=== PATIENT | female | born 1975 | race African-American/Black ===

== ENCOUNTER 2016-05-31 06:19 | Emergency (ER) | payer OTHER ==
[~2016-05-31] VITALS: Ht 165.1 cm; Wt 86.2 kg
[~2016-05-31 06:19] MED LIST: NORCO 5-325 TA1 EACH ORAL
[2016-05-31 06:41] VITALS: BP 108/65
[2016-05-31] MEDS ORDERED: VENTOLIN HFA18 GM INH (06:55)
[2016-05-31 07:01] VITALS: BP 108/65
--- NOTE | 2016-05-31 07:07 | Emergency Room Report ---
History of Present Illness General Chief Complaint: Skin Rash/Abscess Source: Patient Present Illness HPI 41 YO F presents with rash to torso, neck for 2 weeks. Mostly concentrated in this area, some rash also on back. Not on extremities, face, oral mucosa. No fever/chills, blistering, vesicles. Does NOT itch or bother patient - she is concerned with "how it looks." Has been taking benadryl at night but is disappointed benadryl hasnt made it "go away." Patient states she "eat shrimp for a whole week" in the days preceeding the rash and also started working out at a gym right before the onset of rash. She denies having SOB, trouble swallowing or chest pain or abd pain after eating the shrimp. She does not shower at gym or use its towels. She has no known allergies to food or medicine. Never had rash before but states she "has seasonal allergies." Denies new soap, detergent, pets, close contacts with similar rash. Did not start new medications prior to rash. On ROS also endorses cough for 1 week; non productive. No history of asthma, smoking, fever/chills. PMD gave Robitussin DM that hasnt helped. Allergies: Coded Allergies: No Known Allergies (Unverified , 01/21/16) Patient History Past Medical History: none Past Surgical History: none Pertinent Family History: none Social History: Denies: alcohol use, drug use, smoking Last Menstrual Period: May Now: No Immunizations: UTD Reviewed Nursing Documentation: PMH: Agreed, PSxH: Agreed Review of Systems All Other Systems: negative except mentioned in HPI Physical Exam Vital Signs Date Time Temp Pulse Resp B/P Pulse Ox O2 Delivery O2 Flow Rate FiO2 05/31/16 06:21 97.2 107 18 106/66 100 Room Air Sp02 EP Interpretation: reviewed, normal General Appearance: normal inspection, well appearing, no apparent distress, alert, GCS 15, non-toxic Head: normocephalic, atraumatic Eyes: bilateral eye EOMI, bilateral eye PERRL ENT: normal ENT inspection, hearing grossly normal, normal pharynx, no angioedema, normal voice, TMs + canals normal, uvula midline, moist mucus membranes Neck: normal inspection, full range of motion, supple, no bony tend Respiratory: normal inspection, lungs clear, normal breath sounds, no rhonchi, no respiratory distress, no retraction, no accessory muscle use, no wheezing Cardiovascular #1: regular rate, rhythm, no edema Gastrointestinal: normal inspection, normal bowel sounds, non tender, soft, no guarding, no hernia Genitourinary: no CVA tenderness Musculoskeletal: normal inspection, back normal, normal range of motion, Amria T' s Sign negative Neurologic: normal inspection, alert, oriented x3, responsive, hospital superintendent III-XII nml as tested, speech normal Psychiatric: normal inspection, judgement/insight normal, mood/affect normal Skin: normal color, warm/dry, well hydrated, other - there are multiple areas of urticaria cocentrated on lower left neck, upper torso and back. No associated excoriations, vesicles, weeping, erythema. Lymphatic: normal inspection Medical Decision Making Diagnostic Impression: Primary Impression: Acute bronchitis Qualified Codes: J20.9 - Acute bronchitis, unspecified Additional Impression: Rash and nonspecific skin eruption ER Course 41 YO F with asymptomatic rash. VSS. Afebrile. DDx includes urticaria (however no assoc itch), pityriasis however no herald patch or xmas tree distribution, contact dermatitis, allergies Since no fever/chills, vesicles, blistering and asymptomatic, likely virus and will self-resolve Advised STOP benadryl since she is asymptomatic Shower immediately after gym As for cough, lungs CTAB. VSS. Not hypoxic. Possibly bronchitis Rx Ventolin PMD followup for cough and Dermatology referral if rash doesnt resolve Last Vital Signs Date Time Temp Pulse Resp B/P Pulse Ox O2 Delivery O2 Flow Rate FiO2 05/31/16 06:41 97.2 95 18 108/65 100 Room Air Status: improved Disposition: HOME, SELF-CARE Condition: Improved Scripts Albuterol Sulfate (VENTOLIN HFA) 18 Gm Hfa.aer.ad 1 PUFF INH EVERY 6 HOURS for For Cough, #18 GM 0 Refills Prov: PHANI CASTRO M.D. 05/31/16 Patient Instructions: Rash, Acute Bronchitis, [id number] Additional Instructions: - STOP taking benadryl unless rash itches; benadryl will not help the rash go away - Make sure to shower soon after working out and do not keep gym clothes on for long time after working out - Use albuterol inhaler during the day for cough - the cough of bronchitis can last for weeks. You can also try tea with honey for cough. - Follow up with your doctor for dermatology referral in 1 week if rash does not improve PHANI CASTRO M.D. May 31, 2016 07:07
== END 2016-05-31 07:02 | disposition home or self-care (01) ==
LOC: EMR 06:38
DX: J20.9 Acute bronchitis, unspecified (principal)
CPT/HCPCS: 99283